=== PATIENT | female | born 1980 | race African-American/Black ===

== ENCOUNTER 2019-11-11 18:19 | Inpatient (IN) | payer MEDICAID, OTHER ==
[~2019-11-11] VITALS: Ht 167.6 cm; Wt 63.5 kg
[2019-11-11] MEDS ORDERED: SODIUM CHLORIDE 0.9% 1,000 ML IV ONE (18:23)
[2019-11-11] MEDS ORDERED: DEXTROSE 50% WATER 50ML SYRINGE IV ONE (18:30)
[2019-11-11 18:50] LABS: BASOPHILS % 0.3 % (0.0-2.0); EOSINOPHILS % 0.6 % (0.0-5.0); HEMATOCRIT. 40.4 % (36.0-48.0); HEMOGLOBIN. 13.3 g/dL (12.0-16.0); LYMPHOCYTES % 36.3 % (20.0-50.0); MEAN CORPUSCULAR HEMOGLOBIN 27.1 pg (28.0-32.0); MEAN CORPUSCULAR VOLUME 82.4 fL (81.0-99.0); MEAN PLATELET VOLUME 8.9 fl (7.4-10.4); MONOCYTES % 7.7 % (2.0-8.0); NEUTROPHILS % 55.1 % (40.0-76.0); PLATELET 212 x1000/uL (130-400); RED BLOOD CELL COUNT 4.91 mill/uL (4.2-5.4); RED CELL DISTRIBUTION WIDTH 13.2 % (11.6-14.6)
[2019-11-11 18:58] LABS: CHLORIDE 103 mEq/L (98-107)
[2019-11-11] MEDS ORDERED: LORAZEPAM 2MG/ML CPJ ONE (18:58)
[2019-11-11] MEDS ORDERED: LORAZEPAM 2MG/ML CPJ IV ONE ×2 (19:00→19:45)
[2019-11-11] MEDS ORDERED: LEVETIRACETAM 1000MG/100ML 100 ML IV ONE (19:00)
[2019-11-11 19:01] LABS: INR 1.1; PROTHROMBIN TIME 10.8 sec (9.6-11.0)
[2019-11-11 19:02] LABS: ETHANOL BLOOD < 10 mg/dL
[2019-11-11 19:04] LABS: HCG SCREEN NEGATIVE
[2019-11-11 19:42] LABS: CREATINE KINASE 108 IU/L (26-192)
[2019-11-11 19:52] LABS: CARBAMAZEPINE < 0.5 ug/mL (4-12); PHENOBARBITAL < 2.1 ug/mL (15.0-40.0); VALPROIC ACID < 3.0 ug/mL (50-100)
[2019-11-12 00:35] VITALS: BP 134/90
[2019-11-12] MEDS ORDERED: FURO-152 PO (01:45)
[2019-11-12] MEDS ORDERED: AMLO5TAB88 PO (01:45)
[2019-11-12 04:58] VITALS: BP 120/85
[2019-11-12] MEDS ORDERED: LORAZEPAM 2MG/ML CPJ IV PRN (05:45)
[2019-11-12 08:00] VITALS: BP 108/64
[2019-11-12] MEDS: AMLODIPINE 5MG TABLET PO SCH (09:00)
[2019-11-12] MEDS: FUROSEMIDE 20MG TABLET PO SCH (09:13)
[2019-11-12] MEDS: LEVETIRACETAM 500MG TABLET PO SCH ×2 (09:13→21:05)
[2019-11-12 10:58] LABS: BASOPHILS % 0.4 % (0.0-2.0); EOSINOPHILS % 0.5 % (0.0-5.0); HEMATOCRIT. 40.3 % (36.0-48.0); HEMOGLOBIN. 13.5 g/dL (12.0-16.0); LYMPHOCYTES % 30.1 % (20.0-50.0); MEAN CORPUSCULAR HEMOGLOBIN 27.5 pg (28.0-32.0); MEAN CORPUSCULAR VOLUME 82.5 fL (81.0-99.0); MEAN PLATELET VOLUME 8.8 fl (7.4-10.4); MONOCYTES % 6.1 % (2.0-8.0); NEUTROPHILS % 62.9 % (40.0-76.0); PLATELET 218 x1000/uL (130-400); RED BLOOD CELL COUNT 4.89 mill/uL (4.2-5.4); RED CELL DISTRIBUTION WIDTH 13.1 % (11.6-14.6)
[2019-11-12 11:11] LABS: CHLORIDE 107 mEq/L (98-107)
[2019-11-12 11:59] LABS: CLARITY URINE CLEAR (CLEAR); COLOR URINE YELLOW (YELLOW); KETONES URINE 1+ (NEGATIVE); LEUKOCYTE ESTERASE URINE NEGATIVE (NEGATIVE); NITRITE URINE NEGATIVE (NEGATIVE); OCCULT BLOOD URINE NEGATIVE (NEGATIVE); PROTEIN URINE NEGATIVE (NEGATIVE); SPECIFIC GRAVITY URINE 1.017 (1.005-1.030); UROBILINOGEN URINE 0.2 E.U./dL (0.2-1.0)
[2019-11-12 12:18] LABS: *COCAINE SCREEN URINE NEGATIVE (NEGATIVE); METHADONE URINE SCREEN NEGATIVE (NEGATIVE)
[2019-11-12 12:19] LABS: *AMPHETAMINES SCREEN URINE NEGATIVE (NEGATIVE); *BARBITURATES SCREEN URINE NEGATIVE (NEGATIVE); CANNABINOID URINE SCREEN NEGATIVE (NEGATIVE); OPIATES URINE SCREEN NEGATIVE (NEGATIVE); PHENCYCLIDINE URINE SCREEN NEGATIVE (NEGATIVE)
[2019-11-12 12:21] LABS: *BENZODIAZEPINES SCREEN URINE PRESUMTIVE POSITIVE (NEGATIVE)
[2019-11-12 16:00] VITALS: BP 116/65
[2019-11-12 20:52] VITALS: BP 97/58
[2019-11-13] VITALS: BP 113/69
[2019-11-13 04:00] VITALS: BP 105/61
[2019-11-13 07:47] LABS: BASOPHILS % 0.4 % (0.0-2.0); EOSINOPHILS % 1.3 % (0.0-5.0); HEMOGLOBIN. 12.1 g/dL (12.0-16.0); MEAN CORPUSCULAR HEMOGLOBIN 27.5 pg (28.0-32.0); MEAN CORPUSCULAR VOLUME 81.8 fL (81.0-99.0); MEAN PLATELET VOLUME 9.1 fl (7.4-10.4); MONOCYTES % 6.2 % (2.0-8.0); NEUTROPHILS % 58.1 % (40.0-76.0); PLATELET 205 x1000/uL (130-400); RED CELL DISTRIBUTION WIDTH 12.9 % (11.6-14.6)
[2019-11-13 07:59] LABS: CHLORIDE 106 mEq/L (98-107)
[2019-11-13 08:00] VITALS: BP 127/71
[2019-11-13] MEDS: FUROSEMIDE 20MG TABLET PO SCH (09:10)
[2019-11-13] MEDS: LEVETIRACETAM 500MG TABLET PO SCH (09:11)
[2019-11-13] MEDS: AMLODIPINE 5MG TABLET PO SCH (09:11)
[2019-11-13 12:00] VITALS: BP 104/70
[2019-11-13 16:00] VITALS: BP 111/63
[2019-11-13 18:22] VITALS: BP 150/88
== END 2019-11-13 19:05 | disposition home or self-care (01) | DRG 53 ==
LOC: ER 18:19 → 7WST 22:41 → EDBEDREQSVC 22:50 → EDBEDREQ 22:50 → EDBEDREQTM 22:50 → ENRESERV 23:23
PROVIDERS: ADMIT Internal Medicine; ATTEND Internal Medicine
PROC: 4A00X4Z Measurement of Central Nervous Electrical Activity, External Approach (ICD-10-PCS; principal; 2019-11-13)
DX: G40.909 Epilepsy, unspecified, not intractable, without status epilepticus (principal); E83.51 Hypocalcemia; I10 Essential (primary) hypertension; K62.5 Hemorrhage of anus and rectum; Z87.820 Personal history of traumatic brain injury; Z90.710 Acquired absence of both cervix and uterus
CPT/HCPCS: 36415; 70551; 71045; 80048; 80053; 80156; 80165; 80184; 80185; 80305; 80320; 81003; 82140; 82550; 82962; 83605; 84145; 84443; 84484; 84703; 85025; 87076; 93005; 96365; 96366; 96375; 99285; J1953; J2060; J7030; G0480